=== PATIENT | female | born 1970 | race African-American/Black ===

== ENCOUNTER 2018-03-29 09:56 | Day surgery (SDC) | payer BC ==
[~2018-03-29 09:56] MED LIST: PROPOFOL 200 MG INJ
[2018-03-29] MEDS ORDERED: ONDANSETRON 4 MG INJ (10:43)
[2018-03-29] MEDS ORDERED: LIDOCAINE 4% SOLUTION 50 ML BTL (11:41)
[2018-03-29] MEDS ORDERED: PROPOFOL 20 ML (11:44)
[2018-03-29] MEDS ORDERED: LIDOCAINE 2% (SDV) 5 ML INJ (11:45)
== END 2018-03-29 15:32 | disposition home or self-care (01) ==
LOC: GIL 09:56
DX: K29.50 Unspecified chronic gastritis without bleeding (principal); K21.0 Gastro-esophageal reflux disease with esophagitis; K26.9 Duodenal ulcer, unspecified as acute or chronic, without hemorrhage or perforation; I10 Essential (primary) hypertension
CPT/HCPCS: 43239; 88305; 88312; 88313